=== PATIENT | male | born 1970 | race Caucasian/White ===

== ENCOUNTER 2018-11-02 16:00 | Outpatient (RCR) | payer OTHER, SELFPAY ==
--- NOTE | 2018-10-18 18:03 | HP.PTEVAL ---
Patient's Visit Information VIRAJ BARBOSA is a 47 year old M referred to Physical Therapy by BARBER MCGARRY with a diagnosis of R RCT. Date of Evaluation: 10/18/18 Physical Therapist: Kelvin Desir, DPT, OCS, CSCS - Visit Plan Frequency: 2x /Week Duration: 4-6 Weeks Plan: 2x/week for 4-6 weeks for. 1. US nonthermal to R supraspinatus. 2. grade 1-2 mobs R g-h jpoint, pec stretch. 3. painfree strength to R RC and posture. 4. Ensure abeying RC precautions with sleep posture activity avoidance. 5. ES and ice if needed. - Subjective Findings: R partial tear RC. Insidous onset waking up with pain last March with pain. Hoping it would go away but it did not. Did x rays and MRI and showed some degenerative changes. pain is dulla t rest 2/10, never completly comfortable...goes to 10 putting ximena coat reaching BW. Reaching OH causes lots of thought before he does it. Sleeping is bad due to all the movements. Enjoys sleepign on either side. Works managing manufacturing facility. Mouse adn computer adn phone are not a problem. After golf it acts up and hard to reach out for radio station. Drives with L hand now. - Pain R shoulder pain. Pain Intensity (Out of 10): 2 Pain Intensity Range: 2, 7 - Objective Posture is forward head and very protracted scapula correcting with VC and feeling better. Tender to palpation in R supraspinatus mm. AROM R UE is full and painful at end of er/ir adn flexion,a lso with horiz adduction. Strength is strong and painfree in IR, biceps, triceps, wrist adn IR. ER and flexion, abd, empty can strong adn painful. - ext rotation lag test. - sulcus. + HK and neer impriongement test. Full PRON without pain today flexion, pain end of er/ir. reflexes 2/3 bi and tri. Sensation WNL to gross light touch in UE. - Goals Goal 1:: Painfree at rest Goal Time Frame: 2-4 Weeks Goal 2:: Full painfree AROM Goal Time Frame: 4-6 Weeks Goal 3:: Sleep without interruption at night or noticing R shoulder Goal Time Frame: 4-6 Weeks Goal 4:: I approp strength adn ROM to limit future problems Goal Time Frame: 4-6 Weeks Goal 5:: Avoid surgery to RTC and paln to swing golf club in spring without increased pain. Goal Time Frame: 4-6 Weeks - Rehabilitation Potential Physical Therapy Diagnosis: R RCT adn inflammation. Rehabilitation Potential: Fair - Anticipated Interventions Patient/Client Instruction: Educate patient on: Condition, Plan of Care For the Purpose of:: To decrease pain, To improve muscle performance and motor function, To improve ability of physical actions for home/community/work/leisure Therapeutic Exercise to Include: Strength training, Flexibilty training, Passive ROM, Active ROM, Scapular Strength/Stabilization For the Purpose of:: To decrease pain, To decrease swelling/inflammation, To improve ability of physical actions for home/community/work/leisure, To improve gait and locomotor functions Manual Therapy Techniques to Include: Mobilization, Passive ROM, Soft tissue mobilization For the Purpose of:: To increase tolerance to activity/condition/position TENS: Yes Cryotherapy (ice pack, ice massage): Yes Ultrasound (thermal/non thermal): Yes - nonthermal For the Purpose of:: To decrease pain, To decrease swelling/inflammation Thank you for the opportunity to evaluate your patient. For Medicare and Medicare HMO plans, please review the plan of care and approve it. It will need to be FAXED BACK to us at [phone] for Medicare purposes. For Medicare only, by signing this I certify the plan of care. Please let me know if there are questions or concerns regarding this plan of care. Physician Signature: Date:
== END 2018-11-02 19:00 | disposition home or self-care (01) ==
LOC: PT 16:00
DX: M75.111 Incomplete rotator cuff tear or rupture of right shoulder, not specified as traumatic (principal)
CPT/HCPCS: 97035; 97110; 97140; 97161; 97530